=== PATIENT | female | born 1980 | race Caucasian/White ===

== ENCOUNTER 2016-06-29 18:34 | Emergency (ER) | payer MEDICARE, MEDICAID ==
[~2016-06-29] VITALS: Ht 167.6 cm; Wt 63.5 kg
[~2016-06-29 18:34] MED LIST: BIRTH CONTROLL
[2016-06-29 18:49] VITALS: BP 138/64
== END 2016-06-29 20:55 | disposition left against medical advice (07) ==
LOC: ER 18:36
DX: Z53.21 Procedure and treatment not carried out due to patient leaving prior to being seen by health care provider (principal)
CPT/HCPCS: A4606; Z7610

== ENCOUNTER 2016-06-30 09:46 | Emergency (ER) | payer MEDICARE, MEDICAID ==
[~2016-06-30] VITALS: Ht 167.6 cm; Wt 63.5 kg
[2016-06-30 09:52] VITALS: BP 133/61
== END 2016-06-30 10:46 | disposition home or self-care (01) ==
LOC: ER 09:51
DX: H92.01 Otalgia, right ear (principal); S89.92XA Unspecified injury of left lower leg, initial encounter; X58.XXXA Exposure to other specified factors, initial encounter; Y93.89 Activity, other specified; Y92.89 Other specified places as the place of occurrence of the external cause; Y99.8 Other external cause status
CPT/HCPCS: A4606; A6403; Z7610

== ENCOUNTER 2017-02-06 11:49 | Emergency (ER) | payer MEDICARE, MEDICAID ==
[~2017-02-06] VITALS: Ht 167.6 cm; Wt 65.8 kg
--- NOTE | 2017-02-06 12:18 | NUR ---
PT BIB SELF C/O LOWER ABDOMINAL CRAMPING AND VB SINCE SUNDAY. REPORTS BRIGHT RED BLOOD. USED 2 PADS TODAY. LAST MENSES 10 DAYS AGO. UNSURE IF SHE IS . NO OTHER COMPLAINTS. IN ER BED 07.
[2017-02-06 12:36] LABS: BASOPHILS % (AUTO) 0.4 % (0.0-2.0); EOSINOPHILS # (AUTO) 0.1 /CMM (0.0-0.7); EOSINOPHILS % (AUTO) 0.7 % (0.0-6.0); HEMATOCRIT 38 % (33-45); HEMOGLOBIN 12.7 g/dL (11.5-14.8); LYMPHOCYTES # (AUTO) 1.3 /CMM (0.8-4.8); LYMPHOCYTES % (AUTO) 18.1 % (20.0-44.0); MEAN CORPUSCULAR HEMOGLOBIN 31 PG (26.0-33.0); MEAN CORPUSCULAR HGB CONC 34 g/dl (31.0-36.0); MEAN CORPUSCULAR VOLUME 92 fL (82-100); MONOCYTES # (AUTO) 0.2 /CMM (0.1-1.30); MONOCYTES % (AUTO) 3.3 % (2.0-12.0); NEUTROPHILS # (AUTO) 5.7 /CMM (1.8-8.9); NEUTROPHILS % (AUTO) 77.5 % (43.0-81.0); PLATELET COUNT (AUTO) 200 /CMM (150-450); RDW COEFFICIENT OF VARIATION 12.4 (11.5-15.0); WHITE BLOOD COUNT (AUTO) 7.3 K/uL (4.3-11.0)
[2017-02-06 12:45] LABS: APPEARANCE,URINE Clear (CLEAR); BILIRUBIN,URINE Negative (NEGATIVE); BLOOD, URINE Trace-intact Ery/uL (NEGATIVE); COLOR,URINE Yellow (YELLOW); KETONES,URINE Negative (NEGATIVE); LEUKOCYTE ESTERASE ,URINE Negative (NEGATIVE); NITRITE, URINE Negative (NEGATIVE); PROTEIN,URINE Negative (NEGATIVE); UGLUCOSE Negative (NEGATIVE); UROBILINOGEN,URINE 0.2 EU/dL (0.2)
[2017-02-06 12:46] LABS: CREATININE 0.8 mg/dL (0.6-1.3); POTASSIUM 3.8 mmol/L (3.5-5.1)
[2017-02-06 12:48] LABS: BACTERIA,URINE Few /HPF (None Seen); SQUAMOUS EPITHELIAL CELL,UR Few /HPF (None Seen)
[2017-02-06 12:50] LABS: INR 0.9 (0.87-1.13); PROTHROMBIN TIME 9.4 SECS (9.5-12.7)
--- NOTE | 2017-02-06 14:04 | NUR ---
IV removed. Catheter intact and site benign. Pressure and 4x4 applied to site. No bleeding noted. DPatient discharged to home in stable condition. Written and verbal after care instructions given. Patient verbalizes understanding of instruction.
[2017-02-06 14:06] VITALS: BP 107/82
[2017-02-07 23:09] LABS: *NEISSERIA GONORRHOEAE NAA Negative (Negative); CHLAMYDIA TRACHOMATIS NAA Negative (Negative)
== END 2017-02-06 14:07 | disposition home or self-care (01) ==
LOC: ER 11:50
DX: N93.9 Abnormal uterine and vaginal bleeding, unspecified (principal)
CPT/HCPCS: 36415; 76856; 80048; 81001; 84703; 85025; 85730; 87210 ×2; 87491; 87591; 96361; 96372; 96374; 99285; A4606; J0696; J1885; J3490; J7030; 81000-TC; Z7610

== ENCOUNTER 2017-07-25 13:25 | Emergency (ER) | payer MEDICAID, MEDICARE ==
[~2017-07-25] VITALS: Ht 167.6 cm; Wt 68.0 kg
[2017-07-25 13:30] VITALS: BP 116/62
== END 2017-07-25 18:00 | disposition home or self-care (01) ==
LOC: ER 13:33
DX: H61.23 Impacted cerumen, bilateral (principal)
CPT/HCPCS: A4606; Z7610

== ENCOUNTER 2017-09-28 01:28 | Emergency (ER) | payer SELFPAY ==
[~2017-09-28] VITALS: Ht 167.6 cm; Wt 68.0 kg
[2017-09-28 01:42] VITALS: BP 151/95
[2017-09-28] MEDS ORDERED: IBUPROFEN 600 MG TABLET PO ONE ×2 (02:20→02:30)
[2017-09-28] MEDS ORDERED: HYDROCODONE/APAP 5/325MG 1 EACH TABLET ONE (02:20)
[2017-09-28] MEDS ORDERED: AMOX/CLAVULANATE 875 MG TABLET ONE (02:20)
[2017-09-28] MEDS ORDERED: AMOX/CLAVULANATE 875 MG TABLET PO ONE (02:30)
[2017-09-28] MEDS ORDERED: HYDROCODONE/APAP 5/325MG 1 EACH TABLET PO ONE (02:30)
== END 2017-09-28 02:29 | disposition home or self-care (01) ==
LOC: ER 01:40
DX: H66.93 Otitis media, unspecified, bilateral (principal); H60.93 Unspecified otitis externa, bilateral
CPT/HCPCS: A4606; Z7610

== ENCOUNTER 2020-09-26 08:01 | Emergency (ER) | payer MEDICAID, OTHER ==
[~2020-09-26] VITALS: Ht 167.6 cm; Wt 74.8 kg
--- NOTE | 2020-09-26 08:01 | NUR ---
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 WILL CONTINUE TO MONITOR.
--- NOTE | 2020-09-26 08:15 | NUR ---
AT BEDSIDE FOR EVAL.
[2020-09-26] MEDS ORDERED: ONDANSETRON HCL/PF 4 MG/2 ML VIAL IVP ONE (08:30)
[2020-09-26] MEDS ORDERED: IV NS 0.9% 1,000 ML BAG IV ONE (08:30)
[2020-09-26] MEDS ORDERED: MAG HYDROX/AL HYDROX/SIMETH 30 ML UDC PO ONE (08:30)
[2020-09-26] MEDS ORDERED: FAMOTIDINE/PF INJ 20 MG/2 ML VIAL IV ONE ×2 (08:30→08:39)
[2020-09-26] MEDS ORDERED: LIDOCAINE VISCOUS 2% UD 15 ML UDC MM ONE (08:30)
[2020-09-26] MEDS ORDERED: MORPHINE SULFATE INJ 2 MG/ML DISP.SYRIN IV ONE (08:30)
--- NOTE | 2020-09-26 08:35 | NUR ---
IV LINE ESTABLISHED BLOOD DRAWN AND SENT TO LAB.
[2020-09-26] MEDS ORDERED: LIDOCAINE VISCOUS 2% UD 15 ML UDC ONE (08:38)
[2020-09-26] MEDS ORDERED: ONDANSETRON HCL/PF 4 MG/2 ML VIAL ONE (08:39)
[2020-09-26] MEDS ORDERED: MORPHINE SULFATE INJ 4 MG/ML DISP.SYRIN ONE (08:39)
[2020-09-26 08:43] LABS: BASOPHILS % (AUTO) 0.3 % (0.0-2.0); EOSINOPHILS % (AUTO) 1.3 % (0.0-6.0); HEMATOCRIT 38 % (33-45); HEMOGLOBIN 12.7 g/dL (11.5-14.8); LYMPHOCYTES # (AUTO) 1.3 /CMM (0.8-4.8); LYMPHOCYTES % (AUTO) 13.6 % (20.0-44.0); MEAN CORPUSCULAR HGB CONC 34 g/dl (31.0-36.0); MEAN CORPUSCULAR VOLUME 94 fL (82-100); MONOCYTES # (AUTO) 0.6 /CMM (0.1-1.30); MONOCYTES % (AUTO) 6.8 % (2.0-12.0); NEUTROPHILS # (AUTO) 7.3 /CMM (1.8-8.9); PLATELET COUNT (AUTO) 221 /CMM (150-450); RED BLOOD CELL COUNT(AUTO) 4.01 MIL/uL (4.0-5.2); WHITE BLOOD COUNT (AUTO) 9.4 K/uL (4.3-11.0)
--- NOTE | 2020-09-26 08:44 | NUR ---
URINAL GIVEN BUT UNABLE TO PROVIDE URINE SPECIMEN THIS TIME.
[2020-09-26] MEDS ORDERED: MAG HYDROX/AL HYDROX/SIMETH 30 ML UDC ONE (08:46)
[2020-09-26 08:53] LABS: CALCIUM, SERUM 9.2 mg/dL (8.5-10.1); CREATININE 0.9 mg/dL (0.6-1.3)
[2020-09-26] MEDS ORDERED: IV NS 0.9% 250 ML IV ONE (08:55)
[2020-09-26] MEDS ORDERED: IOHEXOL-300 100 ML VIAL IV ONE (08:55)
[2020-09-26] MEDS ORDERED: CT SWABBABLE VALVE TRANS SET 1 EA INFUS.SET MC ONE (08:55)
[2020-09-26 09:00] LABS: BILIRUBIN,DIRECT 0.1 mg/dL (0.0-0.2); BILIRUBIN,TOTAL 0.4 mg/dL (0.2-1.0); TOTAL PROTEIN, SERUM 7.1 g/dL (6.4-8.2)
--- NOTE | 2020-09-26 09:08 | NUR ---
URINE SPECIMEN COLLECTED AND SENT TO LAB.
--- NOTE | 2020-09-26 09:17 | NUR ---
[employer] INSTALLER AT BEDSIDE FOR ULTRASOUND.
[2020-09-26 09:23] LABS: BILIRUBIN,URINE NEGATIVE (NEGATIVE); LEUKOCYTE ESTERASE ,URINE NEGATIVE (NEGATIVE); NITRITE, URINE NEGATIVE (NEGATIVE); PH,URINE 5.5 (5.0-8.0); PROTEIN,URINE NEGATIVE (NEGATIVE); UGLUCOSE NEGATIVE (NEGATIVE); UROBILINOGEN,URINE 0.2 EU/dL (0.2)
[2020-09-26 09:25] LABS: COLOR,URINE STRAW (YELLOW)
[2020-09-26] MEDS ORDERED: ONDA4TAB5 PO (10:44)
[2020-09-26] MEDS ORDERED: FAMO-131 PO (10:44)
--- NOTE | 2020-09-26 11:06 | NUR ---
IV removed. Catheter intact and site benign. Pressure and 4x4 applied to site. No bleeding noted. Patient discharged to home in stable condition. Written and verbal after care instructions given. Patient verbalizes understanding of instruction.
[2020-09-26 11:07] VITALS: BP 125/65
== END 2020-09-26 11:07 | disposition home or self-care (01) ==
LOC: ER 08:03
DX: N20.0 Calculus of kidney (principal); N83.202 Unspecified ovarian cyst, left side; N83.201 Unspecified ovarian cyst, right side
CPT/HCPCS: 36415; 74177; 76705; 80048; 80076; 81003; 83690; 84702; 84703; 85025; 96361; 96374; 96375; 99285; J2270; J2405; J3490; J7050; Q9967

== ENCOUNTER 2022-03-30 05:50 | Emergency (ER) | payer MEDICAID, OTHER ==
[~2022-03-30] VITALS: Ht 167.6 cm; Wt 79.4 kg
[~2022-03-30 05:50] MED LIST changes: +FAMO-131 PO; +ONDA4TAB5 PO
--- NOTE | 2022-03-30 06:09 | NUR ---
BIBSELF C/O ABD PAIN WITH N/V X 2 DAYS . 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 PT A/OX4. TOLERATING R/A WELL WITH NO SOB. RESP EVEN AND NONLABORED. SAFETY MEASURES IN PLACE.
--- NOTE | 2022-03-30 06:13 | NUR ---
Adalid barrera in [facility] - 03/30/22 at 0657 by TAYLOR [employer] FIELD ENGINEER AT BEDSIDE
--- NOTE | 2022-03-30 06:16 | NUR ---
URINE SENT TO LAB
[2022-03-30] MEDS ORDERED: MAG HYDROX/AL HYDROX/SIMETH 30 ML UDC ONE (06:33)
[2022-03-30] MEDS ORDERED: LIDOCAINE VISCOUS 2% UD 15 ML UDC ONE (06:34)
[2022-03-30] MEDS ORDERED: KETOROLAC TROMETHAMINE INJ 30 MG/ML VIAL ONE (06:34)
[2022-03-30] MEDS ORDERED: ONDANSETRON HCL/PF 4 MG/2 ML VIAL ONE (06:34)
--- NOTE | 2022-03-30 06:57 | NUR ---
IV R HAND #20G S/L BLOOD COLLECTED AND SENT TO LAB.
[2022-03-30] MEDS: MAG HYDROX/AL HYDROX/SIMETH 30 ML UDC PO ONE (07:01)
[2022-03-30] MEDS: IV NS 0.9% 1,000 ML BAG IV ONE (07:01)
[2022-03-30] MEDS: KETOROLAC TROMETHAMINE INJ 30 MG/ML VIAL IV ONE (07:01)
[2022-03-30] MEDS: LIDOCAINE VISCOUS 2% UD 15 ML UDC MM ONE (07:01)
[2022-03-30] MEDS: ONDANSETRON HCL/PF 4 MG/2 ML VIAL IVP ONE (07:01)
--- NOTE | 2022-03-30 07:04 | NUR ---
PT SIGNED CONSENT FORM; VERBALIZED UNDERSTANDING
[2022-03-30 07:12] LABS: BASOPHILS % (AUTO) 0.3 % (0.0-2.0); EOSINOPHILS % (AUTO) 3.1 % (0.0-6.0); HEMATOCRIT 39 % (33-45); HEMOGLOBIN 13.3 g/dL (11.5-14.8); LYMPHOCYTES # (AUTO) 0.8 K/uL (0.8-4.8); MEAN CORPUSCULAR HGB CONC 34 g/dl (31.0-36.0); MEAN CORPUSCULAR VOLUME 91 fL (82-100); MONOCYTES # (AUTO) 0.4 K/uL (0.1-1.30); NEUTROPHILS # (AUTO) 5.6 K/uL (1.8-8.9); NEUTROPHILS % (AUTO) 79.6 % (43.0-81.0); PLATELET COUNT (AUTO) 199 K/uL (150-450); RED BLOOD CELL COUNT(AUTO) 4.32 MIL/uL (4.0-5.2); WHITE BLOOD COUNT (AUTO) 7.1 K/uL (4.3-11.0)
[2022-03-30] MEDS ORDERED: MORPHINE SULFATE INJ 4 MG/ML DISP.SYRIN ONE ×3 (07:12→09:58)
[2022-03-30] MEDS: MORPHINE SULFATE INJ 2 MG/ML DISP.SYRIN IV ONE ×2 (07:14→09:47)
--- NOTE | 2022-03-30 07:14 | NUR ---
US TECH AT PT'S BEDSIDE
[2022-03-30 07:16] LABS: CALCIUM, SERUM 8.5 mg/dL (8.5-10.1); CREATININE 0.7 mg/dL (0.6-1.3); POTASSIUM 4.1 mmol/L (3.5-5.1)
[2022-03-30 07:21] LABS: ALBUMIN 3.5 g/dL (3.4-5.0); BILIRUBIN,DIRECT 0.1 mg/dL (0.0-0.2); BILIRUBIN,TOTAL 0.2 mg/dL (0.2-1.0); TOTAL PROTEIN, SERUM 6.8 g/dL (6.4-8.2)
[2022-03-30 07:22] LABS: BILIRUBIN,URINE NEGATIVE (NEGATIVE); COLOR,URINE YELLOW (YELLOW); LEUKOCYTE ESTERASE ,URINE NEGATIVE (NEGATIVE); NITRITE, URINE NEGATIVE (NEGATIVE); PROTEIN,URINE NEGATIVE (NEGATIVE); UGLUCOSE NEGATIVE (NEGATIVE); UROBILINOGEN,URINE 0.2 EU/dL (0.2)
--- NOTE | 2022-03-30 07:25 | NUR ---
RECEIVED PT FROMFELTON RN PT AWAKE ABDOMINALE US DONE
[2022-03-30 09:23] LABS: BACTERIA,URINE Rare /HPF (None Seen); RBC,URINE 0-2 /HPF (0-2); SQUAMOUS EPITHELIAL CELL,UR Many /HPF (None Seen); WBC,URINE 0-2 /HPF (0-3)
--- NOTE | 2022-03-30 09:30 | NUR ---
CALLED DR. PIÑA FOR GI CONSULT. NO ANSWER, SENT MESSAGE TO FOLLOW UP.
--- NOTE | 2022-03-30 09:32 | NUR ---
MOVE SHEET SUBMITTED.
[2022-03-30] MEDS ORDERED: PANTOPRAZOLE 40 MG VIAL ONE (09:45)
[2022-03-30] MEDS: PANTOPRAZOLE 40 MG VIAL IV ONE (09:47)
--- NOTE | 2022-03-30 11:30 | NUR ---
DR. TERAN SPEAKING TO DR. WELLS FOR A POSSIBLE TRANSFER TO [facility]. [phone]
--- NOTE | 2022-03-30 12:20 | NUR ---
ACCEPTED AT [facility] ROOM [address] DR[address] TERAN [phone] [facility] ETA 1330
--- NOTE | 2022-03-30 12:22 | NUR ---
COVID SWAB TAKEN SENT TO LAB LAB
--- NOTE | 2022-03-30 13:51 | NUR ---
TRANSFER TO [facility] HAND OFF TO Christiano PHOENIX RN TO ROOM 412
[2022-03-30 13:55] VITALS: BP 115/66
== END 2022-03-30 15:51 | disposition short-term general hospital (02) ==
LOC: ER 05:52
DX: R10.816 Epigastric abdominal tenderness (principal); K83.8 Other specified diseases of biliary tract; Z20.822 Contact with and (suspected) exposure to COVID-19
CPT/HCPCS: 99291; 96374; 76705; 96375; 96361; 87426; 96376; 85025; 80048; 83690; 80076; 84703; 81001; 36415; J2270 ×2; J2405; J7030; C9113; C9803; J1885